=== PATIENT | female | born 1960 | race Caucasian/White ===

== ENCOUNTER → 2025-01-19 11:14 | Outpatient (REF) | payer MEDICARE, SELFPAY | LOC: WDC 11:14 | PROVIDERS: ATTENDING PHYSICIAN Nurse Practitioner Adult Health | DX: Z12.31 Encounter for screening mammogram for malignant neoplasm of breast (principal) | CPT/HCPCS: 77063; 77067 ==

== ENCOUNTER → 2025-09-19 09:45 | Outpatient (REF) | payer MEDICARE, SELFPAY | LOC: RST 09:45 | PROVIDERS: ATTENDING PHYSICIAN Otolaryngology; FAMILY PHYSICIAN Nurse Practitioner Adult Health | DX: R13.12 Dysphagia, oropharyngeal phase (principal); E04.2 Nontoxic multinodular goiter; K21.9 Gastro-esophageal reflux disease without esophagitis | CPT/HCPCS: 74230; 92611 ==